=== PATIENT | male | born 1995 | race American Indian/Alaskan Native ===

== ENCOUNTER 2021-01-08 22:02 | Emergency (ER) | payer OTHER ==
[2021-01-08 23:14] VITALS: BP 132/71
[2021-01-09] MEDS ORDERED: IBUPROFEN 800 MG TAB PO ONE (02:33)
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
== END 2021-01-09 04:19 | disposition home or self-care (01) ==
LOC: ED 22:02
DX: M54.2 Cervicalgia (principal); M54.50 Low back pain, unspecified; R51.9 Headache, unspecified
CPT/HCPCS: 72040; 72100; 99283